=== PATIENT | male | born 1950 | race Caucasian/White ===

== ENCOUNTER 2019-01-11 05:10 | Day surgery (SDC) ==
[2019-01-05 10:35] LABS: HEMATOCRIT 38.9 % (42.0-52.0); HEMOGLOBIN 13.4 g/dL (14.0-18.0); MCH 33.5 PG (27-31); MCHC 34.4 g/dL (33-37); MCV 97.3 FL (81-99); MPV 8.1 FL (7.4-10.4); RDW 11.6 % (11.5-14.5); WBC 5.07 X1000 (4.8-10.8)
[2019-01-05 10:44] LABS: INR 0.94; PROTIME 12.7 Seconds (11.0-16.0)
[2019-01-05 10:45] LABS: PTT 27.4 Seconds (22.3-41.8)
[2019-01-05 11:02] LABS: AGAP 13; BUN 16 mg/dL (8-22); CALCIUM 9.5 mg/dL (8.8-10.2); CHLORIDE 92 mmol/L (98-107); COSMO 269; GLUCOSE 121 mg/dL (70-104); SODIUM 133 mmol/L (136-145); TCO2 28 mmol/L (25-35)
[2019-01-05 11:33] LABS: CREATININE 0.9 mg/dL (0.7-1.2); ESTIMATED GFR > 60
--- NOTE | 2019-01-05 11:33 | EKG Report ---
Test Performed on : 01/05/2019 10:24:07 AM Test Reason : pat Blood Pressure : / mmHG Vent. Rate : 065 BPM Atrial Rate : 065 BPM P-R Int : 170 ms QRS Dur : 086 ms QT Int : 346 ms P-R-T Axes : 083 075 078 degrees QTc Int : 359 ms Normal sinus rhythm. Normal ECG When compared with ECG of 04-JAN-2017 10:54, No significant change was found Unconfirmed Result
[2019-01-11] MEDS ORDERED: KEFZOL 1 GM/D5W 2 GM/100 ML IVPB ONE (05:40)
[2019-01-11] MEDS ORDERED: LR 1,000 ML ONE ×2 (05:40→06:31)
[2019-01-11] MEDS ORDERED: QUELICIN (DOSE) ONE (06:27)
[2019-01-11] MEDS ORDERED: DIPRIVAN 1% ONE (06:27)
[2019-01-11] MEDS ORDERED: XYLOCAINE-MPF 2% ONE (06:27)
[2019-01-11] MEDS ORDERED: MARCAINE 0.25% PF/EPI 1:200,000 ONE (06:31)
[2019-01-11] MEDS ORDERED: OFIRMEV 1000 MG/ISOTONIC SOLN 1,000 MG/100 ML BOTTLE ONE (07:23)
[2019-01-11] MEDS ORDERED: ROBINUL ONE ×2 (07:23→08:50)
[2019-01-11] MEDS ORDERED: NORCURON ONE (07:23)
[2019-01-11 07:59] LABS: URINE SOURCE CATH
[2019-01-11] MEDS ORDERED: DECADRON ONE (08:02)
[2019-01-11] MEDS ORDERED: ZOFRAN ONE (08:02)
[2019-01-11 08:03] LABS: BILIRUBIN URINE NEGATIVE (NEGATIVE); BLOOD URINE NEGATIVE (NEGATIVE); COLOR YELLOW; GLUCOSE URINE NEGATIVE (NEGATIVE); KETONE URINE NEGATIVE (NEGATIVE); LEUKOCYTES URINE NEGATIVE (NEGATIVE); NITRITE URINE NEGATIVE (NEGATIVE); PROTEIN URINE NEGATIVE (NEGATIVE); SP GRAVITY URINE 1.009; TURBIDITY URINE CLEAR (CLEAR); UR EPITHELIAL CELLS <10 /HPF (<10); URINE BACTERIA NEGATIVE /HPF; URINE RBC <10 /HPF (<10); URINE WBC <10 /HPF (<10); UROBILINOGEN URINE NORMAL (NORMAL)
[2019-01-11] MEDS ORDERED: NEOSTIGMINE ONE (08:50)
[2019-01-11] MEDS ORDERED: FENTANYL ONE (09:01)
[2019-01-11] MEDS ORDERED: D5 1/2 NS 1,000 ML ONE (09:41)
[2019-01-11] MEDS ORDERED: PHENERGAN ONE (09:41)
[2019-01-11] MEDS: DILAUDID ONE ×2 (09:43→09:46)
[2019-01-11] MEDS ORDERED: LABETALOL IV PRN (10:00)
[2019-01-11] MEDS ORDERED: MORPHINE IV PRN (10:17)
[2019-01-11] MEDS ORDERED: NORCO-5 PO PRN (10:30)
[2019-01-11] MEDS ORDERED: PHENERGAN PR PRN (10:30)
[2019-01-11] MEDS ORDERED: PHENERGAN PO PRN (10:30)
[2019-01-11] MEDS ORDERED: TYLENOL PO PRN (10:30)
[2019-01-11] MEDS ORDERED: PHENERGAN IV PRN (10:30)
[2019-01-11] MEDS ORDERED: ZOFRAN IV PRN (10:30)
[2019-01-11] MEDS ORDERED: NORCO-10 PO PRN (10:30)
[2019-01-11] MEDS ORDERED: NORCO-7.5 PO PRN (10:30)
[2019-01-11] MEDS ORDERED: SODIUM CHLORIDE 0.9% INJ PRN (10:30)
[2019-01-11] MEDS: TORADOL IV SCH ×3 (11:12→22:14)
[2019-01-11] MEDS ORDERED: OFIRMEV 1000 MG/ISOTONIC SOLN 1,000 MG/100 ML BOTTLE IV PRN (13:35)
[2019-01-11] MEDS: KEFZOL 1 GM/D5W 1 GM/50 ML IVPB IV SCH ×2 (15:01→22:14)
[2019-01-11] MEDS: VENTOLIN HFA INH SCH ×2 (15:28→22:49)
[2019-01-11] MEDS: COLACE PO SCH (22:14)
[2019-01-11] MEDS: PERIDEX MT SCH (22:15)
[2019-01-11] MEDS: D5 1/2 NS 1,000 ML IV SCH (22:15)
[2019-01-12] MEDS: VENTOLIN HFA INH SCH ×2 (03:32→09:44)
[2019-01-12] MEDS: TORADOL IV SCH (04:28)
[2019-01-12] MEDS: D5 1/2 NS 1,000 ML IV SCH (05:15)
[2019-01-12] MEDS: KEFZOL 1 GM/D5W 1 GM/50 ML IVPB IV SCH (06:26)
[2019-01-12 06:53] LABS: HEMATOCRIT 33.1 % (42.0-52.0); HEMOGLOBIN 11.6 g/dL (14.0-18.0); MCH 34.2 PG (27-31); MCV 97.6 FL (81-99); MPV 8.6 FL (7.4-10.4); RBC 3.39 XMIL (4.7-6.1); RDW 11.8 % (11.5-14.5); WBC 13.45 X1000 (4.8-10.8)
[2019-01-12 07:45] VITALS: BP 147/75
[2019-01-12 08:24] LABS: AGAP 15; BUN 13 mg/dL (8-22); CALCIUM 8.6 mg/dL (8.8-10.2); CHLORIDE 91 mmol/L (98-107); COSMO 260; GLUCOSE 150 mg/dL (70-104); POTASSIUM 4.2 mmol/L (3.5-5.1); SODIUM 128 mmol/L (136-145); TCO2 22 mmol/L (25-35)
[2019-01-12] MEDS ORDERED: CARDIZEM CD PO SCH (09:00)
[2019-01-12] MEDS ORDERED: XALATAN 0.005% OPH SOLN OPH SCH (09:00)
[2019-01-12] MEDS ORDERED: LIPITOR PO SCH (09:00)
[2019-01-12] MEDS ORDERED: COZAAR PO SCH (09:00)
[2019-01-12] MEDS: COLACE PO SCH (09:27)
[2019-01-12] MEDS: PERIDEX MT SCH (09:27)
--- NOTE | 2019-01-12 20:24 | OPERATIVE NOTE ---
PROCEDURE DATE: 01/11/2019 SURGEON: Chevy Milan MD PREOPERATIVE DIAGNOSES: Elevated PSA, intermediate risk, Jose 7 prostate adenocarcinoma, history of previous open appendectomy. POSTOPERATIVE DIAGNOSES: Elevated PSA, intermediate risk, Central 7 prostate adenocarcinoma, history of previous open appendectomy. PODIATRIC SURGEON: Gareth Rodriguez MD, Carolina Villalpando. Please note that Dr. Rodriguez was present throughout the entire case and participated in the entire case with exception to the wound closure. PROCEDURE: 1. Robotic-assisted laparoscopic prostatectomy with nerve sparing. 2. Bilateral pelvic lymph node dissection. 3. Laparoscopic urethral suspension. INDICATIONS: A 68-year-old male who was seen in clinic with elevated PSA. He underwent bioprosthetic biopsy which revealed Central 7 and 6 prostate adenocarcinoma. He was counseled on the various treatment modalities and chose to proceed with robotic surgery with pelvic lymph node dissection. He was specifically counseled on the risks of long-term urinary incontinence and erectile dysfunction. FINDINGS: Bilateral nerve sparing was performed. Watertight vesicourethral anastomosis tested with 240 mL of sterile fluid. Adequate hemostasis at the conclusion of case. DESCRIPTION OF PROCEDURE: After obtaining informed consent, patient was brought to the operating room. Perioperative antibiotics and general endotracheal anesthesia were administered. He was placed in lithotomy position with upper and lower extremities appropriately padded. He was prepped and draped in sterile fashion. An 18[place] De Luna catheter was introduced, and his bladder was drained. We began by making a small stab incision in his umbilicus and introduced Veress needle connected to saline-filled syringe. We confirmed positive drop test, followed by aspiration of fluid in the syringe without evidence of GI contents or blood. We then insufflated his pneumoperitoneal pressure to 15 mmHg. The trocar sites were marked out in a standard prostatectomy fashion. I used 10 mL of Marcaine for local anesthetic at the trocar site insertion. Bovie electrocautery was used to incise skin. A 12 mm camera trocar was introduced and his peritoneal cavity was inspected. He had no evidence of adhesions. I was able to place the trocars under direct vision. He was then placed in steep Trendelenburg position, and the robot was docked. We began by making a perineal incision 3 cm above the rectum, identified, dissected and transected the right vas deferens, followed by identification and dissection of right seminal vesicle. We performed the same thing with the left vas deferens and left seminal vesicle. We then dissected anterior to vas deferens to the level of the prostate and then posterior to seminal vesicles by incising Denonvilliers' fascia and developed the perirectal plane. Subsequent to that, we turned attention to dropping the bladder. We incised lateral to each medial umbilical ligament and were able to access the space of Retzius. Once the bladder was dropped, we cleared off the fat from endopelvic fascia. This allowed us to expose the superficial venous dorsal complex, which was fully controlled with bipolar electrocautery. We incised the endopelvic fascia and dissected along the contour of the prostate. Puboprostatic ligaments were divided sharply. The deep dorsal venous complex was secured with 0 V-Loc suture in a figure-of- eight fashion followed by anterior periosteal elevation stitch. We then turned attention to identifying bladder neck, which was done by gentle tugging on the De Luna catheter. Monopolar cautery was used to incise the area of the bladder neck until De Luna catheter came into the view. It was grasped and secured with the fourth arm and brought anteriorly. The bladder neck was then divided circumferentially. Prostate was lifted with the fourth arm, and plane was developed between the bladder and prostate until seminal vesicles and vas deferens came into the view. He had quite small prostate. It was under 50 cubic centimeters by biopsy measurements. Traction was placed on both vas deferens. We then began reflecting neurovascular bundles, which was done at 5 and 7 o'clock with the use of Hem-o-griffin clips. I attempted to save nerves bilaterally. Eventually, the prostate was freed up posteriorly freeing it from perirectal fat. We then sharply divided the apex of the prostate, and I used partial urethral length preservation given that he had a couple of positive cores on the right apex from his biopsy. The urethra was eventually transected sharply, and the prostate was delivered. The operative field and the pedicles were inspected. There was no evidence of significant bleeding. Attention was then turned to the pelvic lymph node dissection. On the left side, we used the fourth arm to move the bladder medially. The lymph packet was grasped and dissected with the following margins, pelvic sidewall laterally, perivesical fat medially, external vein superiorly, and obturator vessels and the nerve posteriorly. Please note that I was able to visualize and spared the obturator nerve and vessels. We placed a Surgicel hemostatic agent in the lymphadenectomy bed. We then performed the same thing on the opposite side with identical margins of resection. The lymph nodes were labeled as pelvic lymph nodes. The prostate and lymph nodes were placed into EndoCatch bag. The field was irrigated. Attention was then turned to the anastomosis. We used 3-0 V-Loc suture and performed Blanco stitch to reapproximate perivesical and periurethral fascia in a running fashion in a clockwise counter clockwise fashion. Those sutures were left for future laparoscopic suspension. I then performed a formal vesicourethral anastomosis with 3-0 V-Loc suture running in clockwise and counterclockwise fashion. The sutures were cross tied. We then placed a fresh 18[place] De Luna catheter with 15 mL in the balloon. The anastomosis was tested by instilling 240 mL of sterile fluid. There was no evidence of anastomotic leak. We decreased pneumoperitoneal pressure to 3 mmHg. There was no evidence of active bleeding. I then performed laparoscopic urethral suspension by using previously placed Blanco sutures and threaded them through the periosteum just lateral to the pubic notch. By tugging on the sutures, I was able to elevate and suspend the urethra nicely. We then decreased pneumoperitoneal pressure one more time to 3 mmHg without any evidence of bleeding. The robot was undocked, his supraumbilical incision was extended. The prostate and lymph nodes were delivered and submitted to pathology. The wounds were irrigated. #2 PDS was used to close the fascia supraumbilically in a running style. 0 Vicryl was used to close the fascia in the 12 mm social media assistant trocar. The wounds were then irrigated again. A 4-0 Monocryl suture was used for subcuticular closure. This was followed by application of Covidien skin adhesive. He was extubated and taken to PACU for further recovery after tolerating the procedure well. ESTIMATED BLOOD LOSS: 10 mL. COMPLICATIONS: None. SPECIMENS: 1. Labeled as prostate. 2. Labeled as pelvic lymph nodes. DRAINS: 18[place] De Luna catheter. DISPOSITION: To PACU and subsequently to floor for observation. cc: Chevy Milan MD
[2019-01-13] MEDS ORDERED: HYDROCHLOROTHIAZIDE PO SCH (09:00)
== END 2019-01-12 11:13 | disposition home or self-care (01) ==
LOC: OR 05:10 → 4N 05:10 → OR 01-12 11:13
PROVIDERS: ATTEND Urology